=== PATIENT | female | born 1970 | race Hispanic/Latino ===

== ENCOUNTER 2023-01-12 21:34 | Inpatient (IN) | payer BC ==
[2023-01-12] MEDS ORDERED: Senokot S 8.6-50 MG TAB PO PRN (22:08)
[2023-01-12] MEDS ORDERED: Dextrose 5%-Lactated Ringers 1,000 ML IV SCH (22:15)
[2023-01-12 22:23] VITALS: BMI 34.4
[2023-01-12 22:38] LABS: #Basophils 0.1 thou/uL (0.0-0.2); #Eosinphils 0.1 thou/uL (0.0-0.7); #Monocytes 0.9 thou/uL (0.11-0.59); %Basophils 0.3 % (0.0-1.0); %Eosinophils 0.3 % (0.0-10.0); %Lymphocytes 14.1 % (21.0-51.0); %Monocytes 5.2 % (0.0-10.0); %Neutrophils 79.8 % (42.0-75.0); Hematocrit 41.2 % (36.0-47.0); Hemoglobin 14.1 g/dL (12.0-16.0); Mean Corpuscular HGB CONC 34.2 g/dL (32.0-36.0); Mean Corpuscular Hemoglobin 28.1 pg (27.0-31.0); Mean Corpuscular Volume 82.2 fl (78.0-98.0); Mean Platelet Volume 9.3 fL (7.4-10.4); Platelet Count 307 10x3/uL (130-400); RBC Distribution Width 13.2 % (11.5-14.5); Red Blood Cell (RBC) Count 5.01 mill/uL (4.20-5.40); White Blood Cell (WBC) Count 17.6 10x3/uL (4.8-10.8)
[2023-01-12 22:59] LABS: ALT (SGPT) 30 U/L (8-55); AST (SGOT) 13 U/L (5-34); Albumin 4.1 g/dL (3.5-5.0); Alkaline Phosphatase 76 U/L (40-110); Anion Gap 13 mmol/L (10-20); BUN (Urea Nitrogen) 24 mg/dL (9.8-20.1); Bilirubin, Total 0.5 mg/dL (0.2-1.2); Calc. Creatinine Clearance 58 mL/min (70-130); Calcium 10.4 mg/dL (7.8-10.44); Carbon Dioxide 23 mmol/L (22-29); Chloride 103 mmol/L (98-107); Estimated GFR 43; Globulin 3.5 g/dL (2.4-3.5); Glucose 144 mg/dL (70-105); Potassium 3.9 mmol/L (3.5-5.1); Protein, Total 7.6 g/dL (6.0-8.3); Sodium 135 mmol/L (136-145)
[2023-01-12] MEDS: Acetaminophen 325 MG TAB PO PRN (23:06)
[2023-01-13] MEDS ORDERED: Morphine 4 MG/ML VIAL SLOW IVP PRN (00:18)
[2023-01-13] MEDS: cefTRIAXone\\ROCEPHIN 1 GM in Sodium Chloride 0.9% 100 ML IVPB SCH (08:52)
[2023-01-13] MEDS: Famotidine 20 MG TAB PO SCH ×2 (08:52→21:25)
[2023-01-13] MEDS ORDERED: Midazolam HCl 2 mg/2 ml Vial ONE (11:53)
[2023-01-13] MEDS ORDERED: fentaNYL PF 100 MCG/2 ML SYRINGE ONE (11:53)
[2023-01-13] MEDS ORDERED: PROPOFOL 200 MG/20 ML VIAL ONE (12:35)
[2023-01-13] MEDS ORDERED: Ondansetron PF 4 MG/2 ML Vial ONE (12:35)
[2023-01-13] MEDS ORDERED: Lidocaine 1% PF 5 ML VIAL ONE (12:35)
[2023-01-13] MEDS ORDERED: Iopamidol 15 ML ONE (12:50)
[2023-01-13] MEDS ORDERED: Promethazine HCl 25 MG/ML VIAL IM PRN (13:14)
[2023-01-13] MEDS ORDERED: Ondansetron HCl/PF 4 MG/2 ML Vial IVP PRN (13:14)
[2023-01-13] MEDS: Ondansetron ODT 4 MG TAB PO PRN (14:23)
[2023-01-13 19:10] LABS: Bilirubin Negative (Negative); Blood, Urine 3+ (Negative); CAUTI Indications for Culture Pelvic or flank pain; Clarity Turbid (Clear); Glucose, Urine (Dipstick) Normal (Negative); Ketone, Urine 20 mg/dL (Negative); Leukocyte 500 Leu/uL (Negative); Nitrite Negative (Negative); Protein, Urine (Dipstick) 20 mg/dL (Neg-Trace); RBC/HPF Greater than 50 HPF (0-3); Specific Gravity, Urine 1.011 (1.002-1.036); Squamous Epithelial 0-3 HPF (0-3); Urobilinogen Normal mg/dL (Less than 2)
[2023-01-13 19:11] LABS: Bacteria/HPF Rare-Few HPF (None Seen)
[2023-01-13 19:12] LABS: Urine Culture Reflex Yes Yes
[2023-01-13] MEDS: Acetaminophen 325 MG TAB PO PRN (21:18)
[2023-01-14] MEDS: Acetaminophen 325 MG TAB PO PRN ×3 (04:05→23:13)
[2023-01-14 07:20] LABS: #Neutrophils 13.2 thou/uL (1.40-6.50); %Basophils 0.1 % (0.0-1.0); %Eosinophils 0.1 % (0.0-10.0); %Lymphocytes 12.8 % (21.0-51.0); %Monocytes 6.2 % (0.0-10.0); %Neutrophils 80.3 % (42.0-75.0); Hematocrit 39.7 % (36.0-47.0); Hemoglobin 13.3 g/dL (12.0-16.0); Mean Corpuscular HGB CONC 33.5 g/dL (32.0-36.0); Mean Corpuscular Hemoglobin 27.9 pg (27.0-31.0); Mean Corpuscular Volume 83.4 fl (78.0-98.0); Mean Platelet Volume 9.7 fL (7.4-10.4); Platelet Count 292 10x3/uL (130-400); RBC Distribution Width 13.1 % (11.5-14.5); Red Blood Cell (RBC) Count 4.76 mill/uL (4.20-5.40); White Blood Cell (WBC) Count 16.4 10x3/uL (4.8-10.8)
[2023-01-14 07:36] LABS: Anion Gap 14 mmol/L (10-20); BUN (Urea Nitrogen) 17 mg/dL (9.8-20.1); Calc. Creatinine Clearance 91 mL/min (70-130); Carbon Dioxide 21 mmol/L (22-29); Chloride 103 mmol/L (98-107); Estimated GFR 73; Glucose 157 mg/dL (70-105); Sodium 134 mmol/L (136-145)
[2023-01-14] MEDS: cefTRIAXone\\ROCEPHIN 1 GM in Sodium Chloride 0.9% 100 ML IVPB SCH (08:06)
[2023-01-14] MEDS: Famotidine 20 MG TAB PO SCH ×2 (08:07→19:39)
[2023-01-15 05:46] LABS: #Basophils 0.1 thou/uL (0.0-0.2); #Eosinphils 0.2 thou/uL (0.0-0.7); #Neutrophils 8.2 thou/uL (1.40-6.50); %Basophils 0.4 % (0.0-1.0); %Eosinophils 1.2 % (0.0-10.0); %Lymphocytes 23.6 % (21.0-51.0); %Monocytes 8.1 % (0.0-10.0); %Neutrophils 66.3 % (42.0-75.0); Hematocrit 41.9 % (36.0-47.0); Hemoglobin 14.3 g/dL (12.0-16.0); Mean Corpuscular HGB CONC 34.1 g/dL (32.0-36.0); Mean Corpuscular Hemoglobin 28.5 pg (27.0-31.0); Mean Corpuscular Volume 83.6 fl (78.0-98.0); Mean Platelet Volume 9.7 fL (7.4-10.4); Platelet Count 268 10x3/uL (130-400); RBC Distribution Width 13.2 % (11.5-14.5); Red Blood Cell (RBC) Count 5.01 mill/uL (4.20-5.40); White Blood Cell (WBC) Count 12.4 10x3/uL (4.8-10.8)
[2023-01-15 06:08] LABS: Anion Gap 15 mmol/L (10-20); BUN (Urea Nitrogen) 18 mg/dL (9.8-20.1); Calc. Creatinine Clearance 94 mL/min (70-130); Calcium 9.8 mg/dL (7.8-10.44); Carbon Dioxide 22 mmol/L (22-29); Chloride 103 mmol/L (98-107); Estimated GFR 76; Glucose 132 mg/dL (70-105); Potassium 3.5 mmol/L (3.5-5.1); Sodium 136 mmol/L (136-145)
[2023-01-15] MEDS: Famotidine 20 MG TAB PO SCH ×2 (08:34→19:34)
[2023-01-15] MEDS: cefTRIAXone\\ROCEPHIN 1 GM in Sodium Chloride 0.9% 100 ML IVPB SCH (08:35)
[2023-01-15] MEDS: Ondansetron ODT 4 MG TAB PO PRN (08:42)
[2023-01-15] MEDS: Acetaminophen 325 MG TAB PO PRN ×2 (08:42→19:34)
[2023-01-16] MEDS: Acetaminophen 325 MG TAB PO PRN (01:32)
[2023-01-16] MEDS: Ondansetron ODT 4 MG TAB PO PRN (01:36)
[2023-01-16 08:02] VITALS: BP 125/81; TEMP 98.1
[2023-01-16] MEDS: cefTRIAXone\\ROCEPHIN 1 GM in Sodium Chloride 0.9% 100 ML IVPB SCH (08:04)
[2023-01-16] MEDS: Famotidine 20 MG TAB PO SCH (08:04)
[2023-01-16 09:51] LABS: #Eosinphils 0.2 thou/uL (0.0-0.7); #Monocytes 0.7 thou/uL (0.11-0.59); #Neutrophils 6.4 thou/uL (1.40-6.50); %Basophils 0.4 % (0.0-1.0); %Eosinophils 1.9 % (0.0-10.0); %Lymphocytes 24.5 % (21.0-51.0); %Monocytes 7.4 % (0.0-10.0); %Neutrophils 65.4 % (42.0-75.0); Hematocrit 42.5 % (36.0-47.0); Mean Corpuscular HGB CONC 32.9 g/dL (32.0-36.0); Mean Corpuscular Hemoglobin 27.6 pg (27.0-31.0); Mean Corpuscular Volume 83.8 fl (78.0-98.0); Mean Platelet Volume 9.5 fL (7.4-10.4); Platelet Count 290 10x3/uL (130-400); RBC Distribution Width 13.1 % (11.5-14.5); Red Blood Cell (RBC) Count 5.07 mill/uL (4.20-5.40); White Blood Cell (WBC) Count 9.8 10x3/uL (4.8-10.8)
== END 2023-01-16 13:46 | disposition home or self-care (01) | DRG 854 ==
LOC: T4-B 21:34
PROVIDERS: ADMIT Student in an Organized Health Care Education/Training Program; ATTEND Internal Medicine Critical Care Medicine
PROC: 0T778DZ Dilation of Left Ureter with Intraluminal Device, Via Natural or Artificial Opening Endoscopic (ICD-10-PCS; principal; 2023-01-13)
PROC: BT1F1ZZ Fluoroscopy of Left Kidney, Ureter and Bladder using Low Osmolar Contrast (ICD-10-PCS; 2023-01-13)
PROC: 3E03329 Introduction of Other Anti-infective into Peripheral Vein, Percutaneous Approach (ICD-10-PCS; 2023-01-13)
DX: A41.9 Sepsis, unspecified organism (principal); N13.6 Pyonephrosis; N17.9 Acute kidney failure, unspecified; Z88.1 Allergy status to other antibiotic agents; Z90.49 Acquired absence of other specified parts of digestive tract; Z98.890 Other specified postprocedural states; Z79.899 Other long term (current) drug therapy; Z79.2 Long term (current) use of antibiotics
CPT/HCPCS: 36415; 74420; 80048; 80053; 81001; 85025; 87086; C2617; J0696; J2250; J2405; J2704; J3490; Q0162; Q9967

== ENCOUNTER 2023-01-21 13:34 | Outpatient (CLI) | payer BC ==
[2023-01-21 14:47] LABS: Bilirubin Neg (Negative); Blood, Urine 250 (Negative); Glucose, Urine (Dipstick) Normal (Negative); Hematocrit 39.9 % (34.9-44.5); Hemoglobin 13.7 g/dL (12.0-15.5); Ketone, Urine Negative (Negative); Leukocyte 500 (Negative); Mean Corpuscular HGB CONC 34.3 g/dL (32.0-36.0); Mean Corpuscular Hemoglobin 27.6 pg (27.0-33.0); Mean Corpuscular Volume 80.3 fl (81.6-98.3); Mean Platelet Volume 9.3 fl (7.4-10.4); Nitrite Negative (Negative); Platelet Count 375 10x3/uL (150-450); Protein, Urine (Dipstick) 100 mg/dl (Neg-Trace); RBC Distribution Width 12.6 % (11.5-14.5); Red Blood Cell (RBC) Count 4.97 10x6/uL (3.90-5.03); Specific Gravity, Urine 1.025 (1.005-1.030); Urobilinogen Normal mg/dL (Less than 2); White Blood Cell (WBC) Count 8.8 10x3/uL (3.5-10.5)
[2023-01-21 14:59] LABS: PTT 25.1 sec (22.0-33.0); Prothrombin Time 10.3 sec (9.5-12.1)
[2023-01-21 15:02] LABS: Anion Gap 16 mmol/L (10-20); BUN (Urea Nitrogen) 20 mg/dL (9.8-20.1); Calc. Creatinine Clearance 0 mL/min (70-130); Carbon Dioxide 22 mmol/L (22-29); Chloride 104 mmol/L (98-107); Estimated GFR 75; Glucose 157 mg/dL (70-105); Sodium 138 mmol/L (136-145)
[2023-01-21 15:30] LABS: Clarity Bloody (Clear)
[2023-01-21 15:33] LABS: RBC/HPF Greater than 50 HPF (0-3)
[2023-01-21 15:34] LABS: Bacteria/HPF 3+ HPF (None Seen); Calcium Oxalate Crystals 2+ HPF (None Seen)
== END 2023-01-21 13:35 | disposition home or self-care (01) ==
LOC: LABBT 13:34
PROVIDERS: ATTEND Urology
DX: Z01.818 Encounter for other preprocedural examination (principal); N20.1 Calculus of ureter
CPT/HCPCS: 80048; 81001; 85027; 85610; 85730; 87086; 93005; 93010

== ENCOUNTER 2023-01-30 10:02 | Day surgery (SDC) | payer BC ==
[2023-01-21 14:26] VITALS: BMI 33.6
[2023-01-30] MEDS ORDERED: fentaNYL PF 100 MCG/2 ML SYRINGE ONE (11:07)
[2023-01-30] MEDS ORDERED: Midazolam HCl 2 mg/2 ml Vial ONE (11:07)
[2023-01-30] MEDS ORDERED: LevoFLOXacin 500 mg/D5W 100 ML BAG ONE (11:10)
[2023-01-30] MEDS ORDERED: Dexamethasone 20 MG/5 ML VIAL ONE (11:18)
[2023-01-30] MEDS ORDERED: PHENYLEPHRINE-NS 100 MCG/ML 10 ML SYRINGE ONE (11:18)
[2023-01-30] MEDS ORDERED: Ondansetron PF 4 MG/2 ML Vial ONE (11:18)
[2023-01-30] MEDS ORDERED: PROPOFOL 200 MG/20 ML VIAL ONE (11:18)
[2023-01-30] MEDS ORDERED: Lidocaine 1% PF 5 ML VIAL ONE (11:18)
[2023-01-30] MEDS ORDERED: Promethazine HCl 25 MG/ML VIAL ONE (12:34)
[2023-01-30] MEDS ORDERED: fentaNYL 50 mcg/mL 1 mL Vial ONE (12:50)
[2023-01-30] MEDS ORDERED: Phenazopyridine HCl 100 MG TAB ONE (13:06)
[2023-01-30] MEDS ORDERED: Oxybutynin 5 MG TAB ONE (13:06)
[2023-01-30] MEDS ORDERED: Ondansetron ODT 4 MG TAB ONE (14:35)
[2023-01-30] MEDS ORDERED: HYDROcodone/Acetaminophen 5/325 mg Tablet ONE (14:47)
== END 2023-01-30 15:32 | disposition home or self-care (01) ==
LOC: SDC 10:02
PROVIDERS: ATTEND Urology
PROC: 0T778DZ Dilation of Left Ureter with Intraluminal Device, Via Natural or Artificial Opening Endoscopic (ICD-10-PCS; principal; 2023-01-30)
PROC: 0TF78ZZ Fragmentation in Left Ureter, Via Natural or Artificial Opening Endoscopic (ICD-10-PCS; principal; 2023-01-30)
PROC: 0TF48ZZ Fragmentation in Left Kidney Pelvis, Via Natural or Artificial Opening Endoscopic (ICD-10-PCS; principal; 2023-01-30)
DX: N20.2 Calculus of kidney with calculus of ureter (principal); N12 Tubulo-interstitial nephritis, not specified as acute or chronic; Z88.1 Allergy status to other antibiotic agents
CPT/HCPCS: 82365; 88300; C1713; C1747; C1769; C2617; J1100; J1956; J2250; J2405; J2550; J2704; J3010; Q0162